=== PATIENT | male | born 1955 | race Caucasian/White ===

== ENCOUNTER 2021-01-19 09:23 | Outpatient (REF) | payer OTHER, SELFPAY ==
--- NOTE | ~2021-01-19 | CT_ITS ---
EXAMINATION: CT HEAD WITHOUT CONTRAST CLINICAL INFORMATION: Cerebral infarction. Weakness. COMPARISON: None available. TECHNIQUE: Contiguous axial imaging was performed from the skull base to vertex without intravenous administration of contrast. This CT examination was performed using dose optimization techniques as appropriate, variously including the following: *Automated exposure control. *Adjustment of mA and/or kV according to patient size (this includes techniques or standardized protocols for targeted exams where dose is matched to indication/reason for exam; i.e. extremities or head). *Use of iterative reconstruction technique. DLP: 869 mGy-cm FINDINGS: There is no evidence of acute intracranial hemorrhage or edematous territorial infarction. A few foci of hypoattenuation in the periventricular and deep white matter are consistent with mild microangiopathy. Lacunar infarct in the right rucker radiata. Otherwise, the sandra-white matter differentiation is preserved. The ventricles are normal in size and configuration. No evidence for obstructive hydrocephalus. No abnormal mass effect or midline shift. No extra-axial fluid collections. Calcific atherosclerotic disease of the intracranial internal carotid and vertebral arteries. No hyperdense vessel sign. No acute soft tissue or osseous abnormalities. Moderate mucosal thickening of the paranasal sinuses. The mastoid air cells and middle ear cavities are clear. The patient is edentulous. There appears to be a biconvex hyperattenuating abnormality in the medial wall of the posterior chamber of the left globe as may be seen with choroidal detachment. CT/CT head/brain wo con IMPRESSION: 1. No evidence of acute intracranial hemorrhage or edematous territorial infarction. 2. Mild underlying microangiopathy. Lacunar infarct within the right rucker radiata. 3. Abnormality along the medial wall of the posterior chamber of the left lobe may represent sequela of choroidal detachment. Recommend comparison with ophthalmologic exam.
--- NOTE | ~2021-01-19 | US_ITS ---
EXAMINATION: US EXTRACRANIAL CAROTID DUPLEX, BILATERAL CLINICAL INFORMATION: This is a 65-year-old male with cerebral infarction. Weakness. Carotid artery disease. COMPARISON: None TECHNIQUE: Real-time ultrasound and Doppler techniques (integrating B-mode 2-D vascular images, Doppler spectral analysis and color-flow Doppler imaging) were utilized to interrogate the extracranial carotid arteries, the vertebral arteries and proximal subclavian arteries bilaterally. The degree of stenosis is determined by criteria similar to NASCET. FINDINGS: Right Side: 1. There is moderate atherosclerotic plaque seen in the bifurcation/proximal ICA region. 2. The common carotid artery PSV proximally is 128 cm/s and distally 88 cm/s. 3. The proximal internal carotid artery velocities are 175 cm/s systolic and 46 cm/s diastolic. 4. The proximal external carotid artery PSV is 245 cm/s. There is a hemodynamically significant stenosis in the external carotid artery. 5. The vertebral artery shows antegrade flow. 6. The subclavian artery waveforms are normal. Left Side: 1. There is moderate atherosclerotic plaque seen in the bifurcation/proximal ICA region. 2. The common carotid artery PSV proximally is 141 cm/s and distally 160 cm/s. 3. The proximal internal carotid artery velocities are 275 cm/s systolic and 42 cm/s diastolic. 4. The proximal external carotid artery PSV is 164 cm/s. There is no hemodynamically significant stenosis in the external carotid artery. 5. The vertebral artery shows antegrade flow. 6. The subclavian artery waveforms are normal. US/US carotid duplex BI IMPRESSION: 1. RIGHT: Moderate, hemodynamically significant stenosis of the proximal right internal carotid artery corresponding to a 50-79% stenosis by velocity criteria. 2. LEFT: Moderate, hemodynamically significant stenosis of the proximal left internal carotid artery corresponding to a 50-79% stenosis by velocity criteria.
== END 2021-01-19 09:24 | disposition home or self-care (01) ==
LOC: HO.US 09:23
PROVIDERS: PCP Internal Medicine Geriatric Medicine; Visit Provider Internal Medicine Geriatric Medicine
DX: I63.9 Cerebral infarction, unspecified (principal); R53.1 Weakness
CPT/HCPCS: 70450; 93880

== ENCOUNTER 2023-04-04 09:20 | Outpatient (REF) | payer OTHER, SELFPAY ==
[2023-04-04 12:07] LABS: Alanine Aminotransferase 15 U/L (0-40); Albumin Level 3.6 g/dL (3.5-5.0); Alkaline Phosphatase 61 U/L (39-117); Anion Gap 15 (12-20); Aspartate Amino Transferase 14 U/L (5-37); Bilirubin Direct 0.1 mg/dL (0.0-0.5); Bilirubin Total 0.3 mg/dL (0.0-1.0); Blood Urea Nitrogen 28 mg/dL (9-16); Calcium 10.3 mg/dL (8.4-10.2); Carbon Dioxide 23 mmol/L (22-29); Chloride 100 mmol/L (96-108); Cholesterol 202 mg/dL (<200); Estimated Glomerular Filt Rate 43; Glucose Random 369 mg/dL (60-115); HDL Cholesterol 30 mg/dL (>40); Potassium 4.6 mmol/L (3.3-5.1); Sodium 133 mmol/L (135-145); Total Protein 6.5 g/dL (6.5-8.0); Triglycerides 519 mg/dL (<150)
[2023-04-04 12:16] LABS: Creatinine Urine 81.61 mg/dL
[2023-04-04 12:21] LABS: Vitamin B12 567 pg/mL (200-900)
[2023-04-04 12:54] LABS: Microalbumin Urine > 2000.0 mg/L
== END 2023-04-04 09:21 | disposition home or self-care (01) ==
LOC: HO.HHCL 09:20
PROVIDERS: Visit Provider Internal Medicine Geriatric Medicine
DX: E11.9 Type 2 diabetes mellitus without complications (principal)
CPT/HCPCS: 36415; 80048; 80061; 80076; 82043; 82570; 82607

== ENCOUNTER 2024-03-11 11:22 | Outpatient (REF) | payer OTHER, SELFPAY ==
[2024-03-11 13:30] LABS: MANUAL DIFF FLAG NO
[2024-03-11 13:38] LABS: Basophils Percent Auto 0.5 % (0-2); Eosinophils Absolute Auto 0.2 X10*3/uL (0.0-0.4); Eosinophils Percent Auto 2.5 % (0-4); Hematocrit 39.1 % (42.0-52.0); Hemoglobin 12.9 g/dl (14.0-18.0); Imm Gran Abs Auto 0.03 X10*3/uL (0.00-0.03); Imm Gran Pct Auto 0.4 % (0.0-0.4); Lymphocytes Absolute Auto 1.4 X10*3/uL (1.2-4.9); Lymphocytes Percent Auto 18.1 % (20-40); Mean Corpuscular Hemoglobin 28.7 pg (27.0-33.0); Mean Corpuscular Volume 87.1 fL (80.0-98.0); Mean Platelet Volume 10.2 fL (9.4-12.4); Monocytes Absolute Auto 0.6 X10*3/uL (0.1-1.2); Monocytes Percent Auto 7.5 % (2-11); Neutrophils Absolute Auto 5.3 x10*3/uL (2.0-8.3); Platelet Count 223 X10*3/uL (160-400); Red Blood Count 4.49 X10*6/uL (4.60-5.80); White Blood Count 7.5 X10*3/uL (4.8-10.8)
[2024-03-11 14:02] LABS: Alanine Aminotransferase 15 U/L (0-40); Albumin Level 3.9 g/dL (3.5-5.0); Alkaline Phosphatase 103 U/L (39-117); Anion Gap 11 (12-20); Aspartate Amino Transferase 19 U/L (5-37); Bilirubin Total 0.4 mg/dL (0.0-1.0); Blood Urea Nitrogen 30 mg/dL (9-16); Calcium 9.6 mg/dL (8.4-10.2); Carbon Dioxide 26 mmol/L (22-29); Chloride 107 mmol/L (96-108); Cholesterol 157 mg/dL (<200); Estimated Glomerular Filt Rate 48; Glucose Random 192 mg/dL (60-115); HDL Cholesterol 27 mg/dL (>40); LDL Cholesterol Calculated 100 mg/dL (<100); Potassium 5.3 mmol/L (3.3-5.1); Sodium 139 mmol/L (135-145); Triglycerides 152 mg/dL (<150)
[2024-03-11 14:20] LABS: Creatinine Urine 58.86 mg/dL
[2024-03-11 14:33] LABS: Microalbum/Creatinine Ratio Ur 2514.4 ug/mg cr (<30)
== END 2024-03-11 11:23 | disposition home or self-care (01) ==
LOC: HO.HHCL 11:22
PROVIDERS: Visit Provider Internal Medicine Geriatric Medicine
DX: E11.22 Type 2 diabetes mellitus with diabetic chronic kidney disease (principal); I50.20 Unspecified systolic (congestive) heart failure; I48.91 Unspecified atrial fibrillation; Z95.810 Presence of automatic (implantable) cardiac defibrillator; N18.30 Chronic kidney disease, stage 3 unspecified
CPT/HCPCS: 36415; 80053; 80061; 82043; 82570; 85025